=== PATIENT | male | born 1970 | race Caucasian/White ===

== ENCOUNTER 2017-09-28 21:20 | Inpatient (IN) | payer OTHER ==
[2017-09-28] MEDS ORDERED: PENDING SANTYL ORDER FOR WOUND CARE XX (23:30)
[2017-09-28] MEDS: KETOROLAC 30 MG INJ IV (23:50)
[2017-09-28] MEDS: LORAZEPAM 2 MG INJ IV (23:50)
[2017-09-29 00:52] LABS: ADD MAN DIFF? NO
[2017-09-29 00:53] LABS: BASOPHIL # 0.1 10^3/ul (0.0-0.1); BASOPHILS % 0.5 % (0.0-2.0); EOSINOPHILS # 0.7 10^3/ul (0.0-0.5); EOSINOPHILS % 5.9 % (0.0-7.0); HEMATOCRIT 32.6 % (42.0-52.0); LYMPHOCYTES # 2.2 10^3/ul (0.8-2.9); LYMPHOCYTES % 18.1 % (15.0-51.0); MEAN CORPUSCULAR HEMOGLOBIN 31.3 pg (29.0-33.0); MEAN CORPUSCULAR HGB CONC 30.7 g/dl (32.0-37.0); MEAN CORPUSCULAR VOLUME 101.9 fl (82.0-101.0); MEAN PLATELET VOLUME 9.8 fl (7.4-10.4); MONOCYTE # 1.1 10^3/ul (0.3-0.9); MONOCYTES % 9.3 % (0.0-11.0); NEUTROPHILS % 65.9 % (39.0-77.0); PLATELET COUNT 273 10^3/UL (140-415); POSITIVE DIFF @See below; RED CELL DISTRIBUTION WIDTH 14.1 % (11.5-14.5)
[2017-09-29 00:53] LABS: WHITE BLOOD COUNT 12.1 10^3/ul (4.8-10.8)
[2017-09-29] MEDS: DEXTROSE 5%-0.45% NACL 1,000 ML IV ×4 (01:00→18:00)
[2017-09-29] MEDS: morphine 2 MG INJ IV ×3 (01:00→09:12)
[2017-09-29] MEDS: ONDANSETRON 4 MG INJ IV ×3 (01:08→17:38)
[2017-09-29 01:11] LABS: LACTIC ACID 0.6 mmol/L (0.5-2.0)
[2017-09-29 01:15] LABS: ALANINE AMINOTRANSFERASE 22 IU/L (13-69); ALBUMIN 3.3 g/dl (3.3-4.9); ALBUMIN/GLOBULIN RATIO 1.22; ALKALINE PHOSPHATASE 76 IU/L (42-121); ANION GAP 16 (8-16); ASPARTATE AMINO TRANSFERASE 19 IU/L (15-46); BILIRUBIN,INDIRECT 0.3 mg/dl (0-1.1); BILIRUBIN,TOTAL 0.3 mg/dl (0.2-1.3); BLOOD UREA NITROGEN 22 mg/dl (7-20); CALCIUM 8.4 mg/dl (8.4-10.2); CARBON DIOXIDE 19 mmol/L (21-31); CHLORIDE 112 mmol/L (97-110); CREATININE 1.08 mg/dl (0.61-1.24); GLUCOSE 62 mg/dl (70-220); MAGNESIUM 2.1 mg/dl (1.7-2.5); PHOSPHORUS 2.4 mg/dl (2.5-4.9); POTASSIUM 4.9 mmol/L (3.5-5.1); SODIUM 142 mmol/L (135-144)
[2017-09-29 05:50] LABS: ADD MAN DIFF? NO
[2017-09-29 05:57] LABS: BASOPHIL # 0.1 10^3/ul (0.0-0.1); BASOPHILS % 0.5 % (0.0-2.0); EOSINOPHILS # 0.6 10^3/ul (0.0-0.5); EOSINOPHILS % 6.8 % (0.0-7.0); HEMATOCRIT 30.9 % (42.0-52.0); HEMOGLOBIN 9.8 g/dl (14.0-18.0); LYMPHOCYTES # 1.8 10^3/ul (0.8-2.9); MEAN CORPUSCULAR HEMOGLOBIN 31.9 pg (29.0-33.0); MEAN CORPUSCULAR HGB CONC 31.7 g/dl (32.0-37.0); MEAN CORPUSCULAR VOLUME 100.7 fl (82.0-101.0); MEAN PLATELET VOLUME 9.9 fl (7.4-10.4); MONOCYTE # 0.9 10^3/ul (0.3-0.9); MONOCYTES % 9.2 % (0.0-11.0); NEUTROPHILS % 64.2 % (39.0-77.0); PLATELET COUNT 252 10^3/UL (140-415); POSITIVE DIFF @See below; RED BLOOD COUNT 3.07 10^6/ul (4.70-6.10); RED CELL DISTRIBUTION WIDTH 14.1 % (11.5-14.5)
[2017-09-29 05:57] LABS: WHITE BLOOD COUNT 9.4 10^3/ul (4.8-10.8)
[2017-09-29 06:21] LABS: ALANINE AMINOTRANSFERASE 20 IU/L (13-69); ALBUMIN 3.1 g/dl (3.3-4.9); ALBUMIN/GLOBULIN RATIO 1.19; ALKALINE PHOSPHATASE 70 IU/L (42-121); ANION GAP 9 (8-16); ASPARTATE AMINO TRANSFERASE 24 IU/L (15-46); BILIRUBIN,INDIRECT 0.2 mg/dl (0-1.1); BILIRUBIN,TOTAL 0.2 mg/dl (0.2-1.3); BLOOD UREA NITROGEN 18 mg/dl (7-20); CALCIUM 8.1 mg/dl (8.4-10.2); CARBON DIOXIDE 23 mmol/L (21-31); CHLORIDE 112 mmol/L (97-110); CREATININE 1.03 mg/dl (0.61-1.24); GLUCOSE 101 mg/dl (70-220); PHOSPHORUS 2.2 mg/dl (2.5-4.9); SODIUM 140 mmol/L (135-144); TOTAL PROTEIN 5.7 g/dl (6.1-8.1)
[2017-09-29] MEDS: NICOTINE (21 MG/24 HR) PATCH TRANSDERM (09:11)
[2017-09-29] MEDS: CIPROFLOXACIN 400MG/D5W 200 ML IVPB ×2 (09:12→21:08)
[2017-09-29] MEDS: PREGABALIN 75 MG CAP PO ×2 (10:40→21:08)
[2017-09-29] MEDS: MULTIVITAMINS THERAPEUTIC TAB PO (10:40)
[2017-09-29] MEDS: LEVOTHYROXINE 50 MCG TAB PO (10:40)
[2017-09-29] MEDS: BUSPIRONE 10 MG TAB PO ×2 (12:37→21:08)
[2017-09-29 13:21] LABS: AMPHETAMINE/METHAMPHETAMINE Negative (NEGATIVE); BARBITURATES Negative (NEGATIVE); BENZODIAZEPINES Negative (NEGATIVE); CANNABINOIDS Positive (NEGATIVE); COCAINE Negative (NEGATIVE)
[2017-09-29 13:24] LABS: OPIATES Positive (NEGATIVE)
[2017-09-29] MEDS: HYDROmorphONE 0.5 MG/0.5 ML SYG IV ×3 (13:24→21:45)
[2017-09-29 15:52] LABS: FREE T4 (FREE THYROXINE) 1.33 ng/dl (0.64-1.79)
[2017-09-29] MEDS: traZODone 100 MG TAB PO (21:08)
[2017-09-29] MEDS: BACLOFEN 10 MG TAB PO (21:08)
[2017-09-30] MEDS: HYDROmorphONE 0.5 MG/0.5 ML SYG IV ×6 (02:08→22:32)
[2017-09-30] MEDS: ZOLPIDEM 5 MG TAB PO (02:54)
[2017-09-30 05:31] LABS: ADD MAN DIFF? NO
[2017-09-30 05:36] LABS: BASOPHIL # 0.1 10^3/ul (0.0-0.1); BASOPHILS % 0.6 % (0.0-2.0); EOSINOPHILS # 0.5 10^3/ul (0.0-0.5); EOSINOPHILS % 6.1 % (0.0-7.0); HEMATOCRIT 33.2 % (42.0-52.0); HEMOGLOBIN 10.8 g/dl (14.0-18.0); LYMPHOCYTES # 2.2 10^3/ul (0.8-2.9); LYMPHOCYTES % 26.7 % (15.0-51.0); MEAN CORPUSCULAR HGB CONC 32.5 g/dl (32.0-37.0); MEAN CORPUSCULAR VOLUME 98.2 fl (82.0-101.0); MEAN PLATELET VOLUME 9.9 fl (7.4-10.4); MONOCYTE # 0.9 10^3/ul (0.3-0.9); MONOCYTES % 10.7 % (0.0-11.0); NEUTROPHIL # 4.4 10^3/ul (1.6-7.5); PLATELET COUNT 321 10^3/UL (140-415); RED BLOOD COUNT 3.38 10^6/ul (4.70-6.10); RED CELL DISTRIBUTION WIDTH 13.6 % (11.5-14.5)
[2017-09-30 05:55] LABS: ALANINE AMINOTRANSFERASE 20 IU/L (13-69); ALBUMIN 3.3 g/dl (3.3-4.9); ALBUMIN/GLOBULIN RATIO 1.17; ALKALINE PHOSPHATASE 71 IU/L (42-121); ANION GAP 11 (8-16); ASPARTATE AMINO TRANSFERASE 18 IU/L (15-46); BILIRUBIN,INDIRECT 0.3 mg/dl (0-1.1); BILIRUBIN,TOTAL 0.3 mg/dl (0.2-1.3); BLOOD UREA NITROGEN 5 mg/dl (7-20); CALCIUM 8.6 mg/dl (8.4-10.2); CARBON DIOXIDE 27 mmol/L (21-31); CHLORIDE 109 mmol/L (97-110); CREATININE 0.85 mg/dl (0.61-1.24); GLUCOSE 120 mg/dl (70-220); POTASSIUM 3.5 mmol/L (3.5-5.1); SODIUM 143 mmol/L (135-144); TOTAL PROTEIN 6.1 g/dl (6.1-8.1)
[2017-09-30 06:22] LABS: PHOSPHORUS 2.4 mg/dl (2.5-4.9)
[2017-09-30 06:22] LABS: MAGNESIUM 1.8 mg/dl (1.7-2.5)
[2017-09-30] MEDS: LEVOTHYROXINE 50 MCG TAB PO (06:25)
[2017-09-30] MEDS: DEXTROSE 5%-0.45% NACL 1,000 ML IV ×3 (06:26→17:40)
[2017-09-30] MEDS: CIPROFLOXACIN 400MG/D5W 200 ML IVPB ×2 (09:09→21:58)
[2017-09-30] MEDS: NICOTINE (21 MG/24 HR) PATCH TRANSDERM (09:10)
[2017-09-30] MEDS: MULTIVITAMINS THERAPEUTIC TAB PO (09:10)
[2017-09-30] MEDS: BUSPIRONE 10 MG TAB PO ×3 (09:10→22:00)
[2017-09-30] MEDS: PREGABALIN 75 MG CAP PO ×2 (09:10→22:00)
[2017-09-30] MEDS: ONDANSETRON 4 MG INJ IV ×3 (09:32→22:03)
[2017-09-30] MEDS: BACLOFEN 10 MG TAB PO ×2 (15:22→22:00)
[2017-09-30] MEDS: LIDOCAINE 5% PATCH TD (17:40)
[2017-09-30] MEDS: traZODone 100 MG TAB PO (21:58)
[2017-10-01] MEDS: DEXTROSE 5%-0.45% NACL 1,000 ML IV ×3 (03:44→23:30)
[2017-10-01] MEDS: SOD CHLORIDE 0.9% 500 ML IV (04:03)
[2017-10-01 04:59] LABS: ADD MAN DIFF? NO
[2017-10-01 05:01] LABS: WHITE BLOOD COUNT 7.2 10^3/ul (4.8-10.8)
[2017-10-01 05:01] LABS: BASOPHIL # 0.1 10^3/ul (0.0-0.1); BASOPHILS % 0.8 % (0.0-2.0); EOSINOPHILS # 0.5 10^3/ul (0.0-0.5); EOSINOPHILS % 7.1 % (0.0-7.0); HEMATOCRIT 31.7 % (42.0-52.0); HEMOGLOBIN 10.8 g/dl (14.0-18.0); LYMPHOCYTES # 2.9 10^3/ul (0.8-2.9); LYMPHOCYTES % 40.7 % (15.0-51.0); MEAN CORPUSCULAR HEMOGLOBIN 32.4 pg (29.0-33.0); MEAN CORPUSCULAR HGB CONC 34.1 g/dl (32.0-37.0); MEAN CORPUSCULAR VOLUME 95.2 fl (82.0-101.0); MEAN PLATELET VOLUME 9.8 fl (7.4-10.4); MONOCYTE # 0.9 10^3/ul (0.3-0.9); MONOCYTES % 12.4 % (0.0-11.0); NEUTROPHIL # 2.7 10^3/ul (1.6-7.5); NEUTROPHILS % 36.8 % (39.0-77.0); PLATELET COUNT 329 10^3/UL (140-415); RED BLOOD COUNT 3.33 10^6/ul (4.70-6.10); RED CELL DISTRIBUTION WIDTH 13.3 % (11.5-14.5)
[2017-10-01 05:30] LABS: PHOSPHORUS 2.9 mg/dl (2.5-4.9)
[2017-10-01 05:30] LABS: MAGNESIUM 1.6 mg/dl (1.7-2.5)
[2017-10-01 05:31] LABS: ANION GAP 8 (8-16); BLOOD UREA NITROGEN 3 mg/dl (7-20); CALCIUM 8.9 mg/dl (8.4-10.2); CARBON DIOXIDE 29 mmol/L (21-31); CHLORIDE 108 mmol/L (97-110); CREATININE 0.82 mg/dl (0.61-1.24); GLUCOSE 101 mg/dl (70-220); POTASSIUM 3.2 mmol/L (3.5-5.1); SODIUM 142 mmol/L (135-144)
[2017-10-01] MEDS: BUSPIRONE 10 MG TAB PO ×3 (09:12→21:10)
[2017-10-01] MEDS: LEVOTHYROXINE 50 MCG TAB PO (09:13)
[2017-10-01] MEDS: PREGABALIN 75 MG CAP PO ×2 (09:13→21:11)
[2017-10-01] MEDS: MULTIVITAMINS THERAPEUTIC TAB PO (09:13)
[2017-10-01] MEDS: NICOTINE (21 MG/24 HR) PATCH TRANSDERM (09:13)
[2017-10-01] MEDS: LIDOCAINE 5% PATCH TD (09:14)
[2017-10-01] MEDS: CIPROFLOXACIN 400MG/D5W 200 ML IVPB ×2 (09:14→21:11)
[2017-10-01] MEDS: ONDANSETRON 4 MG INJ IV ×2 (09:49→18:38)
[2017-10-01] MEDS: HYDROmorphONE 0.5 MG/0.5 ML SYG IV ×4 (09:49→23:10)
[2017-10-01] MEDS: POTASSIUM CHLORIDE (SR) 20 MEQ TAB PO (15:25)
[2017-10-01] MEDS: MAGNESIUM SULFATE 2 GM/50 ML 50 ML IVPB (17:40)
[2017-10-01] MEDS: traZODone 100 MG TAB PO ×2 (21:00→21:11)
[2017-10-01] MEDS: BACLOFEN 10 MG TAB PO (21:10)
[2017-10-02] MEDS: traZODone 100 MG TAB PO ×2 (00:13→20:18)
[2017-10-02 05:06] LABS: ADD MAN DIFF? NO
[2017-10-02 05:13] LABS: BASOPHIL # 0.1 10^3/ul (0.0-0.1); BASOPHILS % 0.9 % (0.0-2.0); EOSINOPHILS # 0.6 10^3/ul (0.0-0.5); EOSINOPHILS % 7.7 % (0.0-7.0); HEMATOCRIT 30.6 % (42.0-52.0); HEMOGLOBIN 10.1 g/dl (14.0-18.0); LYMPHOCYTES # 3.9 10^3/ul (0.8-2.9); LYMPHOCYTES % 49.8 % (15.0-51.0); MEAN CORPUSCULAR HEMOGLOBIN 31.8 pg (29.0-33.0); MEAN CORPUSCULAR VOLUME 96.2 fl (82.0-101.0); MEAN PLATELET VOLUME 9.6 fl (7.4-10.4); MONOCYTE # 0.9 10^3/ul (0.3-0.9); MONOCYTES % 11.5 % (0.0-11.0); NEUTROPHILS % 25.7 % (39.0-77.0); PLATELET COUNT 312 10^3/UL (140-415); RED BLOOD COUNT 3.18 10^6/ul (4.70-6.10); RED CELL DISTRIBUTION WIDTH 13.2 % (11.5-14.5)
[2017-10-02 05:13] LABS: WHITE BLOOD COUNT 7.8 10^3/ul (4.8-10.8)
[2017-10-02] MEDS: DEXTROSE 5%-0.45% NACL 1,000 ML IV ×3 (05:18→23:30)
[2017-10-02 05:36] LABS: ANION GAP 10 (8-16); BLOOD UREA NITROGEN 3 mg/dl (7-20); CALCIUM 8.5 mg/dl (8.4-10.2); CARBON DIOXIDE 27 mmol/L (21-31); CHLORIDE 109 mmol/L (97-110); CREATININE 0.88 mg/dl (0.61-1.24); GLUCOSE 102 mg/dl (70-220); POTASSIUM 3.5 mmol/L (3.5-5.1); SODIUM 142 mmol/L (135-144)
[2017-10-02] MEDS: LEVOTHYROXINE 50 MCG TAB PO (06:14)
[2017-10-02] MEDS: MULTIVITAMINS THERAPEUTIC TAB PO (08:42)
[2017-10-02] MEDS: NICOTINE (21 MG/24 HR) PATCH TRANSDERM (08:42)
[2017-10-02] MEDS: PREGABALIN 75 MG CAP PO ×2 (08:42→20:18)
[2017-10-02] MEDS: BUSPIRONE 10 MG TAB PO ×3 (08:42→20:18)
[2017-10-02] MEDS: CIPROFLOXACIN 400MG/D5W 200 ML IVPB ×2 (08:42→20:36)
[2017-10-02] MEDS: LIDOCAINE 5% PATCH TD (08:43)
[2017-10-02] MEDS: DIATR MEGLU/DIATRIZOATE SODIUM 120 ML BTL (12:54)
[2017-10-02] MEDS: ONDANSETRON 4 MG INJ IV ×2 (13:12→20:17)
[2017-10-02] MEDS: HYDROmorphONE 0.5 MG/0.5 ML SYG IV ×3 (13:13→22:43)
[2017-10-02] MEDS: ACETAMINOPHEN 500 MG TAB PO ×2 (15:17→22:43)
[2017-10-02] MEDS: IOHEXOL 14.3 MG(I)/ML (ADULT) BTL PO (18:12)
[2017-10-02] MEDS: IODIXANOL LOCM 100 ML BTL (18:58)
[2017-10-02] MEDS: SOD CHLORIDE 0.9% 100 ML (18:58)
[2017-10-02] MEDS: BACLOFEN 10 MG TAB PO (20:18)
[2017-10-03] MEDS: ONDANSETRON 4 MG INJ IV ×4 (02:57→21:16)
[2017-10-03] MEDS: HYDROmorphONE 0.5 MG/0.5 ML SYG IV ×6 (02:57→23:10)
[2017-10-03] MEDS: DEXTROSE 5%-0.45% NACL 1,000 ML IV ×3 (02:57→23:30)
[2017-10-03 06:00] LABS: ADD MAN DIFF? NO
[2017-10-03 06:02] LABS: ABNORMAL IP MESSAGE 1; BASOPHIL # 0.1 10^3/ul (0.0-0.1); BASOPHILS % 1.2 % (0.0-2.0); EOSINOPHILS # 0.7 10^3/ul (0.0-0.5); EOSINOPHILS % 8.3 % (0.0-7.0); HEMATOCRIT 30.4 % (42.0-52.0); HEMOGLOBIN 10.2 g/dl (14.0-18.0); LYMPHOCYTES # 3.8 10^3/ul (0.8-2.9); LYMPHOCYTES % 48.8 % (15.0-51.0); MEAN CORPUSCULAR HEMOGLOBIN 32.7 pg (29.0-33.0); MEAN CORPUSCULAR HGB CONC 33.6 g/dl (32.0-37.0); MEAN CORPUSCULAR VOLUME 97.4 fl (82.0-101.0); MEAN PLATELET VOLUME 9.7 fl (7.4-10.4); MONOCYTE # 0.9 10^3/ul (0.3-0.9); MONOCYTES % 11.1 % (0.0-11.0); NEUTROPHILS % 25.4 % (39.0-77.0); PLATELET COUNT 324 10^3/UL (140-415); POSITIVE DIFF @See below; RED BLOOD COUNT 3.12 10^6/ul (4.70-6.10); RED CELL DISTRIBUTION WIDTH 13.2 % (11.5-14.5)
[2017-10-03 06:02] LABS: WHITE BLOOD COUNT 7.8 10^3/ul (4.8-10.8)
[2017-10-03 06:29] LABS: ALANINE AMINOTRANSFERASE 19 IU/L (13-69); ALKALINE PHOSPHATASE 47 IU/L (42-121); ANION GAP 8 (8-16); ASPARTATE AMINO TRANSFERASE 14 IU/L (15-46); BILIRUBIN,INDIRECT 0.2 mg/dl (0-1.1); BILIRUBIN,TOTAL 0.2 mg/dl (0.2-1.3); BLOOD UREA NITROGEN 4 mg/dl (7-20); CALCIUM 8.5 mg/dl (8.4-10.2); CARBON DIOXIDE 28 mmol/L (21-31); CHLORIDE 107 mmol/L (97-110); CREATININE 0.94 mg/dl (0.61-1.24); GLUCOSE 106 mg/dl (70-220); POTASSIUM 3.2 mmol/L (3.5-5.1); SODIUM 140 mmol/L (135-144); TOTAL PROTEIN 5.5 g/dl (6.1-8.1)
[2017-10-03 06:31] LABS: PHOSPHORUS 3.6 mg/dl (2.5-4.9)
[2017-10-03 06:31] LABS: MAGNESIUM 1.7 mg/dl (1.7-2.5)
[2017-10-03] MEDS: LEVOTHYROXINE 50 MCG TAB PO (06:55)
[2017-10-03] MEDS: CIPROFLOXACIN 400MG/D5W 200 ML IVPB ×2 (08:37→21:02)
[2017-10-03] MEDS: PREGABALIN 75 MG CAP PO ×2 (08:38→21:03)
[2017-10-03] MEDS: BUSPIRONE 10 MG TAB PO ×3 (08:38→21:02)
[2017-10-03] MEDS: MULTIVITAMINS THERAPEUTIC TAB PO (08:38)
[2017-10-03] MEDS: NICOTINE (21 MG/24 HR) PATCH TRANSDERM (08:38)
[2017-10-03] MEDS: LIDOCAINE 5% PATCH TD (08:39)
[2017-10-03] MEDS: BARIUM SULF 2% 450 ML BTL (BERRY SMOOTHIE) PO (10:00)
[2017-10-03] MEDS ORDERED: BARIUM SULF 2% 450 ML BTL (BERRY SMOOTHIE) PO (11:30)
[2017-10-03] MEDS: POTASSIUM CHLORIDE 100 ML IVPB (11:54)
[2017-10-03] MEDS: BISACODYL (EC) 5 MG TAB PO (15:04)
[2017-10-03] MEDS: POLYETHYLENE GLYCOL 3350 119 GM POWDER PO (17:35)
[2017-10-03] MEDS: MAGNESIUM CITRATE 300 ML BTL PO (18:52)
[2017-10-03] MEDS: ACETAMINOPHEN 500 MG TAB PO (18:57)
[2017-10-03] MEDS: traZODone 100 MG TAB PO (21:03)
[2017-10-03] MEDS: BACLOFEN 10 MG TAB PO (21:03)
[2017-10-04] MEDS: DEXTROSE 5%-0.45% NACL 1,000 ML IV ×3 (01:28→22:44)
[2017-10-04] MEDS: HYDROmorphONE 0.5 MG/0.5 ML SYG IV ×5 (03:39→22:27)
[2017-10-04] MEDS: ONDANSETRON 4 MG INJ IV ×3 (03:39→17:52)
[2017-10-04] MEDS: POLYETHYLENE GLYCOL 3350 119 GM POWDER PO (05:14)
[2017-10-04] MEDS: BISACODYL (EC) 5 MG TAB PO (05:14)
[2017-10-04] MEDS: LEVOTHYROXINE 50 MCG TAB PO (06:06)
[2017-10-04] MEDS: PREGABALIN 75 MG CAP PO ×2 (09:32→20:40)
[2017-10-04] MEDS: LIDOCAINE 5% PATCH TD (09:32)
[2017-10-04] MEDS: CIPROFLOXACIN 400MG/D5W 200 ML IVPB ×2 (09:32→20:41)
[2017-10-04] MEDS: MULTIVITAMINS THERAPEUTIC TAB PO (09:33)
[2017-10-04] MEDS: NICOTINE (21 MG/24 HR) PATCH TRANSDERM (09:33)
[2017-10-04] MEDS: BUSPIRONE 10 MG TAB PO ×3 (09:33→20:41)
[2017-10-04 09:52] LABS: ADD MAN DIFF? NO
[2017-10-04 10:06] LABS: ABNORMAL IP MESSAGE 1; BASOPHIL # 0.1 10^3/ul (0.0-0.1); BASOPHILS % 1.1 % (0.0-2.0); HEMATOCRIT 33.8 % (42.0-52.0); HEMOGLOBIN 11.2 g/dl (14.0-18.0); LYMPHOCYTES # 1.5 10^3/ul (0.8-2.9); MEAN CORPUSCULAR HGB CONC 33.1 g/dl (32.0-37.0); MEAN CORPUSCULAR VOLUME 96.6 fl (82.0-101.0); MEAN PLATELET VOLUME 9.5 fl (7.4-10.4); MONOCYTE # 0.7 10^3/ul (0.3-0.9); MONOCYTES % 10.4 % (0.0-11.0); NEUTROPHIL # 3.1 10^3/ul (1.6-7.5); NEUTROPHILS % 44.6 % (39.0-77.0); NUCLEATED RED BLOOD CELLS% 0.3 /100WBC (0.0-0.0); PLATELET COUNT 369 10^3/UL (140-415); POSITIVE DIFF @See below; RED CELL DISTRIBUTION WIDTH 13.2 % (11.5-14.5)
[2017-10-04 10:10] LABS: ALANINE AMINOTRANSFERASE 21 IU/L (13-69); ALBUMIN 3.4 g/dl (3.3-4.9); ALBUMIN/GLOBULIN RATIO 1.36; ALKALINE PHOSPHATASE 55 IU/L (42-121); ANION GAP 9 (8-16); ASPARTATE AMINO TRANSFERASE 14 IU/L (15-46); BILIRUBIN,INDIRECT 0.3 mg/dl (0-1.1); BILIRUBIN,TOTAL 0.3 mg/dl (0.2-1.3); BLOOD UREA NITROGEN 3 mg/dl (7-20); CALCIUM 8.7 mg/dl (8.4-10.2); CARBON DIOXIDE 27 mmol/L (21-31); CHLORIDE 108 mmol/L (97-110); CREATININE 0.91 mg/dl (0.61-1.24); GLUCOSE 106 mg/dl (70-220); POTASSIUM 3.2 mmol/L (3.5-5.1); SODIUM 141 mmol/L (135-144); TOTAL PROTEIN 5.9 g/dl (6.1-8.1)
[2017-10-04] MEDS ORDERED: POTASSIUM CHLORIDE 50 ML IVPB (12:30)
[2017-10-04] MEDS: POTASSIUM CHLORIDE 100 ML IVPB (15:03)
[2017-10-04] MEDS: PROPOFOL 40 ML (15:54)
[2017-10-04] MEDS: LIDOCAINE 100 MG SYRINGE (15:55)
[2017-10-04] MEDS: BACLOFEN 10 MG TAB PO (20:41)
[2017-10-04] MEDS: traZODone 100 MG TAB PO (20:41)
[2017-10-05] MEDS: ONDANSETRON 4 MG INJ IV ×4 (00:18→20:14)
[2017-10-05] MEDS: HYDROmorphONE 0.5 MG/0.5 ML SYG IV ×5 (05:13→21:27)
[2017-10-05 05:43] LABS: ADD MAN DIFF? NO
[2017-10-05 06:02] LABS: WHITE BLOOD COUNT 6.5 10^3/ul (4.8-10.8)
[2017-10-05 06:02] LABS: ABNORMAL IP MESSAGE 1; BASOPHIL # 0.1 10^3/ul (0.0-0.1); BASOPHILS % 1.2 % (0.0-2.0); EOSINOPHILS % 15.6 % (0.0-7.0); HEMATOCRIT 33.3 % (42.0-52.0); LYMPHOCYTES # 2.2 10^3/ul (0.8-2.9); LYMPHOCYTES % 33.9 % (15.0-51.0); MEAN CORPUSCULAR HEMOGLOBIN 31.6 pg (29.0-33.0); MEAN CORPUSCULAR VOLUME 95.7 fl (82.0-101.0); MEAN PLATELET VOLUME 9.7 fl (7.4-10.4); MONOCYTE # 0.7 10^3/ul (0.3-0.9); MONOCYTES % 10.7 % (0.0-11.0); NEUTROPHIL # 2.1 10^3/ul (1.6-7.5); NEUTROPHILS % 31.6 % (39.0-77.0); PLATELET COUNT 361 10^3/UL (140-415); POSITIVE DIFF @See below; RED BLOOD COUNT 3.48 10^6/ul (4.70-6.10); RED CELL DISTRIBUTION WIDTH 13.4 % (11.5-14.5)
[2017-10-05 06:19] LABS: ALANINE AMINOTRANSFERASE 8 IU/L (13-69); ALBUMIN/GLOBULIN RATIO 1.11; ALKALINE PHOSPHATASE 44 IU/L (42-121); ANION GAP 9 (8-16); ASPARTATE AMINO TRANSFERASE 15 IU/L (15-46); BILIRUBIN,INDIRECT 0.1 mg/dl (0-1.1); BILIRUBIN,TOTAL 0.1 mg/dl (0.2-1.3); BLOOD UREA NITROGEN 3 mg/dl (7-20); CALCIUM 8.6 mg/dl (8.4-10.2); CARBON DIOXIDE 27 mmol/L (21-31); CHLORIDE 108 mmol/L (97-110); CREATININE 1.03 mg/dl (0.61-1.24); GLUCOSE 106 mg/dl (70-220); POTASSIUM 3.3 mmol/L (3.5-5.1); SODIUM 141 mmol/L (135-144); TOTAL PROTEIN 5.7 g/dl (6.1-8.1)
[2017-10-05] MEDS: LEVOTHYROXINE 50 MCG TAB PO (06:21)
[2017-10-05] MEDS: DEXTROSE 5%-0.45% NACL 1,000 ML IV ×3 (07:52→23:30)
[2017-10-05] MEDS: CIPROFLOXACIN 400MG/D5W 200 ML IVPB ×2 (09:01→20:15)
[2017-10-05] MEDS: LIDOCAINE 5% PATCH TD (09:01)
[2017-10-05] MEDS: MULTIVITAMINS THERAPEUTIC TAB PO (09:02)
[2017-10-05] MEDS: NICOTINE (21 MG/24 HR) PATCH TRANSDERM (09:02)
[2017-10-05] MEDS: BUSPIRONE 10 MG TAB PO ×3 (09:02→20:15)
[2017-10-05] MEDS: PREGABALIN 75 MG CAP PO ×2 (09:02→20:14)
[2017-10-05] MEDS: POTASSIUM CHLORIDE 100 ML IVPB (11:13)
[2017-10-05] MEDS: MESALAMINE (SR) 250 MG CAP PO ×2 (17:20→20:15)
[2017-10-05] MEDS: IOHEXOL 14.3 MG(I)/ML (ADULT) BTL PO (18:29)
[2017-10-05] MEDS: traZODone 100 MG TAB PO (20:15)
[2017-10-05] MEDS: BACLOFEN 10 MG TAB PO (20:15)
[2017-10-05] MEDS: ACETAMINOPHEN 500 MG TAB PO (21:45)
[2017-10-05] MEDS: SOD CHLORIDE 0.9% 100 ML (22:11)
[2017-10-05] MEDS: IOHEXOL 300MG/ML 150 ML BTL (22:13)
[2017-10-06] MEDS: DEXTROSE 5%-0.45% NACL 1,000 ML IV ×2 (06:37→15:30)
[2017-10-06] MEDS: HYDROmorphONE 0.5 MG/0.5 ML SYG IV ×4 (06:37→21:09)
[2017-10-06] MEDS: LEVOTHYROXINE 50 MCG TAB PO (06:37)
[2017-10-06] MEDS: ONDANSETRON 4 MG INJ IV ×3 (06:42→20:55)
[2017-10-06] MEDS: CIPROFLOXACIN 400MG/D5W 200 ML IVPB ×2 (08:48→20:54)
[2017-10-06] MEDS: MULTIVITAMINS THERAPEUTIC TAB PO (08:50)
[2017-10-06] MEDS: MESALAMINE (SR) 250 MG CAP PO ×4 (08:50→20:55)
[2017-10-06] MEDS: PREGABALIN 75 MG CAP PO ×2 (08:50→20:55)
[2017-10-06] MEDS: BUSPIRONE 10 MG TAB PO ×3 (08:50→20:55)
[2017-10-06] MEDS: LIDOCAINE 5% PATCH TD (09:00)
[2017-10-06] MEDS: NICOTINE (21 MG/24 HR) PATCH TRANSDERM (09:00)
[2017-10-06] MEDS ORDERED: TPN 1,000 ML IV (09:10)
[2017-10-06 09:20] LABS: ADD MAN DIFF? NO
[2017-10-06 09:33] LABS: WHITE BLOOD COUNT 5.5 10^3/ul (4.8-10.8)
[2017-10-06 09:33] LABS: ABNORMAL IP MESSAGE 1; BASOPHIL # 0.1 10^3/ul (0.0-0.1); BASOPHILS % 1.3 % (0.0-2.0); EOSINOPHILS # 0.8 10^3/ul (0.0-0.5); EOSINOPHILS % 14.8 % (0.0-7.0); HEMATOCRIT 34.8 % (42.0-52.0); HEMOGLOBIN 11.2 g/dl (14.0-18.0); LYMPHOCYTES # 1.6 10^3/ul (0.8-2.9); LYMPHOCYTES % 28.8 % (15.0-51.0); MEAN CORPUSCULAR HEMOGLOBIN 31.2 pg (29.0-33.0); MEAN CORPUSCULAR HGB CONC 32.2 g/dl (32.0-37.0); MEAN CORPUSCULAR VOLUME 96.9 fl (82.0-101.0); MEAN PLATELET VOLUME 9.7 fl (7.4-10.4); MONOCYTE # 0.5 10^3/ul (0.3-0.9); MONOCYTES % 8.9 % (0.0-11.0); NEUTROPHIL # 2.3 10^3/ul (1.6-7.5); NEUTROPHILS % 41.1 % (39.0-77.0); PLATELET COUNT 373 10^3/UL (140-415); POSITIVE DIFF @See below; RED BLOOD COUNT 3.59 10^6/ul (4.70-6.10); RED CELL DISTRIBUTION WIDTH 13.5 % (11.5-14.5)
[2017-10-06 10:15] LABS: ANION GAP 10 (8-16); BLOOD UREA NITROGEN 5 mg/dl (7-20); CALCIUM 8.6 mg/dl (8.4-10.2); CARBON DIOXIDE 27 mmol/L (21-31); CHLORIDE 108 mmol/L (97-110); CREATININE 1.02 mg/dl (0.61-1.24); GLUCOSE 98 mg/dl (70-220); POTASSIUM 3.6 mmol/L (3.5-5.1); SODIUM 141 mmol/L (135-144)
[2017-10-06 10:28] LABS: ALANINE AMINOTRANSFERASE 25 IU/L (13-69); ALBUMIN 3.1 g/dl (3.3-4.9); ALKALINE PHOSPHATASE 48 IU/L (42-121); ASPARTATE AMINO TRANSFERASE 20 IU/L (15-46); BILIRUBIN,INDIRECT 0.2 mg/dl (0-1.1); BILIRUBIN,TOTAL 0.2 mg/dl (0.2-1.3); MAGNESIUM 1.8 mg/dl (1.7-2.5); PHOSPHORUS 3.5 mg/dl (2.5-4.9); TOTAL PROTEIN 5.9 g/dl (6.1-8.1); TRIGLYCERIDES 132 mg/dl (0-149)
[2017-10-06 10:35] LABS: PREALBUMIN 20.2 mg/dl (17.6-36.0)
[2017-10-06] MEDS ORDERED: ACCU-CHEK XX (13:00)
[2017-10-06] MEDS: BUDESONIDE (EC) 3 MG CAP PO (14:00)
[2017-10-06] MEDS: traZODone 100 MG TAB PO (20:55)
[2017-10-06] MEDS: BACLOFEN 10 MG TAB PO (20:55)
[2017-10-07] MEDS: DEXTROSE 5%-0.45% NACL 1,000 ML IV ×4 (01:10→23:30)
[2017-10-07] MEDS: HYDROmorphONE 0.5 MG/0.5 ML SYG IV ×6 (01:10→22:30)
[2017-10-07] MEDS: ONDANSETRON 4 MG INJ IV ×3 (05:25→18:19)
[2017-10-07 05:46] LABS: ADD MAN DIFF? NO
[2017-10-07 05:50] LABS: BASOPHIL # 0.1 10^3/ul (0.0-0.1); BASOPHILS % 1.1 % (0.0-2.0); EOSINOPHILS # 0.9 10^3/ul (0.0-0.5); EOSINOPHILS % 12.6 % (0.0-7.0); HEMATOCRIT 34.4 % (42.0-52.0); HEMOGLOBIN 11.4 g/dl (14.0-18.0); LYMPHOCYTES # 2.7 10^3/ul (0.8-2.9); LYMPHOCYTES % 38.4 % (15.0-51.0); MEAN CORPUSCULAR HEMOGLOBIN 32.2 pg (29.0-33.0); MEAN CORPUSCULAR HGB CONC 33.1 g/dl (32.0-37.0); MEAN CORPUSCULAR VOLUME 97.2 fl (82.0-101.0); MEAN PLATELET VOLUME 9.7 fl (7.4-10.4); MONOCYTE # 0.7 10^3/ul (0.3-0.9); MONOCYTES % 9.3 % (0.0-11.0); NEUTROPHIL # 2.5 10^3/ul (1.6-7.5); NEUTROPHILS % 35.4 % (39.0-77.0); PLATELET COUNT 353 10^3/UL (140-415); RED BLOOD COUNT 3.54 10^6/ul (4.70-6.10); RED CELL DISTRIBUTION WIDTH 13.4 % (11.5-14.5)
[2017-10-07 05:50] LABS: WHITE BLOOD COUNT 7.1 10^3/ul (4.8-10.8)
[2017-10-07] MEDS: LEVOTHYROXINE 50 MCG TAB PO (06:06)
[2017-10-07 06:15] LABS: ANION GAP 11 (8-16); BLOOD UREA NITROGEN 7 mg/dl (7-20); CALCIUM 8.8 mg/dl (8.4-10.2); CARBON DIOXIDE 25 mmol/L (21-31); CHLORIDE 110 mmol/L (97-110); CREATININE 1.01 mg/dl (0.61-1.24); GLUCOSE 113 mg/dl (70-220); POTASSIUM 3.1 mmol/L (3.5-5.1); SODIUM 143 mmol/L (135-144)
[2017-10-07] MEDS: POTASSIUM CHLORIDE (SR) 20 MEQ TAB PO (07:06)
[2017-10-07] MEDS: MESALAMINE (SR) 250 MG CAP PO ×4 (08:11→20:28)
[2017-10-07] MEDS: MULTIVITAMINS THERAPEUTIC TAB PO (08:12)
[2017-10-07] MEDS: BUDESONIDE (EC) 3 MG CAP PO (08:12)
[2017-10-07] MEDS: PREGABALIN 75 MG CAP PO ×2 (08:12→20:27)
[2017-10-07] MEDS: BUSPIRONE 10 MG TAB PO ×3 (08:13→20:28)
[2017-10-07] MEDS: CIPROFLOXACIN 400MG/D5W 200 ML IVPB ×2 (09:14→20:26)
[2017-10-07] MEDS ORDERED: POTASSIUM CHLORIDE (SR) 20 MEQ TAB PO (13:34)
[2017-10-07] MEDS: ENOXAPARIN 40 MG/0.4 ML SYG SC (14:00)
[2017-10-07] MEDS: NICOTINE (21 MG/24 HR) PATCH TRANSDERM (17:00)
[2017-10-07] MEDS: LIDOCAINE 5% PATCH TD (17:00)
[2017-10-07] MEDS: BACLOFEN 10 MG TAB PO (20:27)
[2017-10-07] MEDS: traZODone 100 MG TAB PO (20:28)
[2017-10-08] MEDS: ONDANSETRON 4 MG INJ IV ×5 (00:31→18:48)
[2017-10-08] MEDS: HYDROmorphONE 0.5 MG/0.5 ML SYG IV ×6 (02:27→23:37)
[2017-10-08] MEDS: DEXTROSE 5%-0.45% NACL 1,000 ML IV ×3 (03:04→23:40)
[2017-10-08 05:02] LABS: ADD MAN DIFF? NO
[2017-10-08 05:08] LABS: WHITE BLOOD COUNT 8.5 10^3/ul (4.8-10.8)
[2017-10-08 05:08] LABS: BASOPHIL # 0.1 10^3/ul (0.0-0.1); BASOPHILS % 0.7 % (0.0-2.0); EOSINOPHILS # 0.7 10^3/ul (0.0-0.5); EOSINOPHILS % 8.3 % (0.0-7.0); HEMATOCRIT 34.9 % (42.0-52.0); HEMOGLOBIN 11.5 g/dl (14.0-18.0); LYMPHOCYTES # 2.5 10^3/ul (0.8-2.9); MEAN CORPUSCULAR HEMOGLOBIN 31.9 pg (29.0-33.0); MEAN CORPUSCULAR VOLUME 96.7 fl (82.0-101.0); MEAN PLATELET VOLUME 9.7 fl (7.4-10.4); MONOCYTE # 0.7 10^3/ul (0.3-0.9); MONOCYTES % 8.5 % (0.0-11.0); NEUTROPHIL # 4.4 10^3/ul (1.6-7.5); NEUTROPHILS % 51.6 % (39.0-77.0); PLATELET COUNT 365 10^3/UL (140-415); RED BLOOD COUNT 3.61 10^6/ul (4.70-6.10); RED CELL DISTRIBUTION WIDTH 13.2 % (11.5-14.5)
[2017-10-08 05:25] LABS: ANION GAP 10 (8-16); BLOOD UREA NITROGEN 9 mg/dl (7-20); CALCIUM 9.3 mg/dl (8.4-10.2); CARBON DIOXIDE 27 mmol/L (21-31); CHLORIDE 107 mmol/L (97-110); GLUCOSE 113 mg/dl (70-220); POTASSIUM 3.6 mmol/L (3.5-5.1); SODIUM 140 mmol/L (135-144)
[2017-10-08] MEDS: LEVOTHYROXINE 75 MCG TAB PO (05:36)
[2017-10-08] MEDS: BUSPIRONE 10 MG TAB PO ×3 (09:30→20:11)
[2017-10-08] MEDS: BUDESONIDE (EC) 3 MG CAP PO (09:32)
[2017-10-08] MEDS: MESALAMINE (SR) 250 MG CAP PO ×4 (09:32→20:11)
[2017-10-08] MEDS: MULTIVITAMINS THERAPEUTIC TAB PO (09:32)
[2017-10-08] MEDS: PREGABALIN 75 MG CAP PO ×2 (09:32→20:10)
[2017-10-08] MEDS: LIDOCAINE 5% PATCH TD (09:36)
[2017-10-08] MEDS: NICOTINE (21 MG/24 HR) PATCH TRANSDERM (09:37)
[2017-10-08] MEDS: ENOXAPARIN 40 MG/0.4 ML SYG SC (09:38)
[2017-10-08] MEDS: CIPROFLOXACIN 400MG/D5W 200 ML IVPB ×2 (09:41→20:10)
[2017-10-08] MEDS: BACLOFEN 10 MG TAB PO (20:10)
[2017-10-08] MEDS: traZODone 100 MG TAB PO (20:11)
[2017-10-09] MEDS: ONDANSETRON 4 MG INJ IV ×2 (01:44→18:59)
[2017-10-09] MEDS: SOD CHLORIDE 0.9% 500 ML IV (04:18)
[2017-10-09] MEDS: HYDROmorphONE 0.5 MG/0.5 ML SYG IV ×4 (04:53→20:25)
[2017-10-09 05:31] LABS: ADD MAN DIFF? NO
[2017-10-09] MEDS: LEVOTHYROXINE 75 MCG TAB PO (05:34)
[2017-10-09 05:36] LABS: WHITE BLOOD COUNT 8.1 10^3/ul (4.8-10.8)
[2017-10-09 05:36] LABS: BASOPHIL # 0.1 10^3/ul (0.0-0.1); EOSINOPHILS # 0.6 10^3/ul (0.0-0.5); EOSINOPHILS % 7.8 % (0.0-7.0); HEMATOCRIT 36.1 % (42.0-52.0); HEMOGLOBIN 11.7 g/dl (14.0-18.0); LYMPHOCYTES # 2.7 10^3/ul (0.8-2.9); MEAN CORPUSCULAR HEMOGLOBIN 31.6 pg (29.0-33.0); MEAN CORPUSCULAR HGB CONC 32.4 g/dl (32.0-37.0); MEAN CORPUSCULAR VOLUME 97.6 fl (82.0-101.0); MEAN PLATELET VOLUME 9.5 fl (7.4-10.4); MONOCYTE # 0.7 10^3/ul (0.3-0.9); MONOCYTES % 8.9 % (0.0-11.0); NEUTROPHIL # 3.8 10^3/ul (1.6-7.5); NEUTROPHILS % 46.7 % (39.0-77.0); PLATELET COUNT 380 10^3/UL (140-415); RED CELL DISTRIBUTION WIDTH 13.6 % (11.5-14.5)
[2017-10-09 06:08] LABS: ANION GAP 11 (8-16); BLOOD UREA NITROGEN 13 mg/dl (7-20); CALCIUM 8.9 mg/dl (8.4-10.2); CARBON DIOXIDE 26 mmol/L (21-31); CHLORIDE 108 mmol/L (97-110); CREATININE 1.02 mg/dl (0.61-1.24); GLUCOSE 91 mg/dl (70-220); POTASSIUM 4.4 mmol/L (3.5-5.1); SODIUM 141 mmol/L (135-144)
[2017-10-09 08:11] LABS: ERYTHROCYTE SEDIMENTATION RATE 18 mm/Hr (0-15)
[2017-10-09] MEDS: MESALAMINE (SR) 250 MG CAP PO ×4 (08:58→20:30)
[2017-10-09] MEDS: MULTIVITAMINS THERAPEUTIC TAB PO (08:58)
[2017-10-09] MEDS: BUSPIRONE 10 MG TAB PO ×3 (08:58→20:27)
[2017-10-09] MEDS: BUDESONIDE (EC) 3 MG CAP PO (08:58)
[2017-10-09] MEDS: PREGABALIN 75 MG CAP PO ×2 (08:58→20:30)
[2017-10-09] MEDS: CIPROFLOXACIN 400MG/D5W 200 ML IVPB ×2 (08:59→20:24)
[2017-10-09] MEDS: ENOXAPARIN 40 MG/0.4 ML SYG SC (09:00)
[2017-10-09] MEDS: NICOTINE (21 MG/24 HR) PATCH TRANSDERM (09:00)
[2017-10-09] MEDS: LIDOCAINE 5% PATCH TD (09:00)
[2017-10-09] MEDS ORDERED: OXYCODONE/ACETAMINOPHEN (5/325) TAB PO (09:30)
[2017-10-09] MEDS: DEXTROSE 5%-0.45% NACL 1,000 ML IV (10:11)
[2017-10-09] MEDS: OXYCODONE/ACETAMINOPHEN (5/325) TAB PO ×3 (12:39→22:35)
[2017-10-09] MEDS: traZODone 100 MG TAB PO (20:29)
[2017-10-09] MEDS: BACLOFEN 10 MG TAB PO (20:30)
[2017-10-10] MEDS: ONDANSETRON 4 MG INJ IV ×2 (01:06→09:01)
[2017-10-10] MEDS: OXYCODONE/ACETAMINOPHEN (5/325) TAB PO ×5 (02:32→22:54)
[2017-10-10] MEDS: LEVOTHYROXINE 75 MCG TAB PO (05:50)
[2017-10-10 06:42] LABS: ADD MAN DIFF? NO
[2017-10-10 06:47] LABS: BASOPHIL # 0.1 10^3/ul (0.0-0.1); BASOPHILS % 1.1 % (0.0-2.0); EOSINOPHILS # 0.6 10^3/ul (0.0-0.5); EOSINOPHILS % 6.5 % (0.0-7.0); HEMATOCRIT 39.1 % (42.0-52.0); HEMOGLOBIN 12.6 g/dl (14.0-18.0); LYMPHOCYTES # 3.4 10^3/ul (0.8-2.9); LYMPHOCYTES % 35.7 % (15.0-51.0); MEAN CORPUSCULAR HEMOGLOBIN 31.3 pg (29.0-33.0); MEAN CORPUSCULAR HGB CONC 32.2 g/dl (32.0-37.0); MEAN PLATELET VOLUME 9.4 fl (7.4-10.4); MONOCYTE # 0.8 10^3/ul (0.3-0.9); MONOCYTES % 8.8 % (0.0-11.0); NEUTROPHIL # 4.3 10^3/ul (1.6-7.5); NEUTROPHILS % 45.8 % (39.0-77.0); PLATELET COUNT 410 10^3/UL (140-415); RED BLOOD COUNT 4.03 10^6/ul (4.70-6.10); RED CELL DISTRIBUTION WIDTH 13.8 % (11.5-14.5)
[2017-10-10 06:47] LABS: WHITE BLOOD COUNT 9.4 10^3/ul (4.8-10.8)
[2017-10-10 07:15] LABS: ANION GAP 13 (8-16); BLOOD UREA NITROGEN 14 mg/dl (7-20); CALCIUM 9.3 mg/dl (8.4-10.2); CARBON DIOXIDE 24 mmol/L (21-31); CHLORIDE 107 mmol/L (97-110); CREATININE 1.03 mg/dl (0.61-1.24); GLUCOSE 90 mg/dl (70-220); POTASSIUM 4.4 mmol/L (3.5-5.1); SODIUM 140 mmol/L (135-144)
[2017-10-10] MEDS: HYDROmorphONE 0.5 MG/0.5 ML SYG IV ×4 (08:01→21:01)
[2017-10-10] MEDS: MULTIVITAMINS THERAPEUTIC TAB PO (09:02)
[2017-10-10] MEDS: BUDESONIDE (EC) 3 MG CAP PO (09:02)
[2017-10-10] MEDS: PREGABALIN 75 MG CAP PO ×2 (09:02→21:01)
[2017-10-10] MEDS: CIPROFLOXACIN 400MG/D5W 200 ML IVPB (09:03)
[2017-10-10] MEDS: MESALAMINE (SR) 250 MG CAP PO ×4 (09:03→21:01)
[2017-10-10] MEDS: BUSPIRONE 10 MG TAB PO ×3 (09:04→21:02)
[2017-10-10] MEDS: ENOXAPARIN 40 MG/0.4 ML SYG SC (09:06)
[2017-10-10] MEDS: NICOTINE (21 MG/24 HR) PATCH TRANSDERM (16:30)
[2017-10-10] MEDS: LIDOCAINE 5% PATCH TD (16:30)
[2017-10-10] MEDS: BACLOFEN 10 MG TAB PO (21:02)
[2017-10-10] MEDS: traZODone 100 MG TAB PO (21:02)
[2017-10-11] MEDS: HYDROmorphONE 0.5 MG/0.5 ML SYG IV ×5 (00:49→20:41)
[2017-10-11] MEDS: ONDANSETRON 4 MG INJ IV ×4 (00:49→23:00)
[2017-10-11] MEDS: LEVOTHYROXINE 75 MCG TAB PO (05:37)
[2017-10-11] MEDS: ENOXAPARIN 40 MG/0.4 ML SYG SC (08:28)
[2017-10-11] MEDS: MULTIVITAMINS THERAPEUTIC TAB PO (08:32)
[2017-10-11] MEDS: PREGABALIN 75 MG CAP PO ×2 (08:33→20:42)
[2017-10-11] MEDS: MESALAMINE (SR) 250 MG CAP PO ×4 (08:33→20:41)
[2017-10-11] MEDS: BUSPIRONE 10 MG TAB PO ×3 (08:34→20:42)
[2017-10-11] MEDS: BUDESONIDE (EC) 3 MG CAP PO (08:34)
[2017-10-11] MEDS: OXYCODONE/ACETAMINOPHEN (5/325) TAB PO ×4 (08:34→23:00)
[2017-10-11] MEDS: LIDOCAINE 5% PATCH TD (08:37)
[2017-10-11] MEDS: NICOTINE (21 MG/24 HR) PATCH TRANSDERM (08:38)
[2017-10-11] MEDS: traZODone 100 MG TAB PO (20:42)
[2017-10-11] MEDS: BACLOFEN 10 MG TAB PO (20:42)
[2017-10-12] MEDS: HYDROmorphONE 0.5 MG/0.5 ML SYG IV ×5 (00:50→19:38)
[2017-10-12] MEDS: ONDANSETRON 4 MG INJ IV ×3 (05:36→18:46)
[2017-10-12] MEDS: LEVOTHYROXINE 75 MCG TAB PO (05:37)
[2017-10-12] MEDS: OXYCODONE/ACETAMINOPHEN (5/325) TAB PO ×4 (06:40→20:15)
[2017-10-12 07:51] LABS: ERYTHROCYTE SEDIMENTATION RATE 18 mm/Hr (0-15)
[2017-10-12] MEDS: MESALAMINE (SR) 250 MG CAP PO ×4 (08:42→21:03)
[2017-10-12] MEDS: PREGABALIN 75 MG CAP PO ×2 (08:43→21:02)
[2017-10-12] MEDS: MULTIVITAMINS THERAPEUTIC TAB PO (08:43)
[2017-10-12] MEDS: BUDESONIDE (EC) 3 MG CAP PO (08:43)
[2017-10-12] MEDS: NICOTINE (21 MG/24 HR) PATCH TRANSDERM (08:43)
[2017-10-12] MEDS: BUSPIRONE 10 MG TAB PO ×3 (08:43→21:03)
[2017-10-12] MEDS: LIDOCAINE 5% PATCH TD (08:44)
[2017-10-12] MEDS: ENOXAPARIN 40 MG/0.4 ML SYG SC (08:45)
[2017-10-12] MEDS: BACLOFEN 10 MG TAB PO (21:03)
[2017-10-12] MEDS: SACCHAROMYCES BOULARDII 250 MG CAP PO (21:03)
[2017-10-12] MEDS: traZODone 100 MG TAB PO (21:03)
[2017-10-13] MEDS: OXYCODONE/ACETAMINOPHEN (5/325) TAB PO ×3 (00:14→10:18)
[2017-10-13] MEDS: ONDANSETRON 4 MG INJ IV ×3 (00:58→14:16)
[2017-10-13] MEDS: HYDROmorphONE 0.5 MG/0.5 ML SYG IV ×2 (01:28→08:11)
[2017-10-13] MEDS: LEVOTHYROXINE 75 MCG TAB PO (06:11)
[2017-10-13] MEDS: NICOTINE (21 MG/24 HR) PATCH TRANSDERM (09:00)
[2017-10-13] MEDS: LIDOCAINE 5% PATCH TD (09:00)
[2017-10-13] MEDS: BUDESONIDE (EC) 3 MG CAP PO (09:25)
[2017-10-13] MEDS: BUSPIRONE 10 MG TAB PO ×3 (09:26→21:25)
[2017-10-13] MEDS: SACCHAROMYCES BOULARDII 250 MG CAP PO ×2 (09:27→21:26)
[2017-10-13] MEDS: PREGABALIN 75 MG CAP PO ×2 (09:27→21:31)
[2017-10-13] MEDS: MULTIVITAMINS THERAPEUTIC TAB PO (09:27)
[2017-10-13] MEDS: MESALAMINE (SR) 250 MG CAP PO ×4 (09:27→21:27)
[2017-10-13] MEDS: ENOXAPARIN 40 MG/0.4 ML SYG SC (09:28)
[2017-10-13] MEDS ORDERED: OXYCODONE/ACETAMINOPHEN (10/325) TAB PO (11:00)
[2017-10-13] MEDS: ACETAMINOPHEN 1000MG/100ML IV 100 ML IVPB ×3 (12:00→18:15)
[2017-10-13] MEDS: CARISOPRODOL 350 MG TAB PO ×2 (15:34→21:30)
[2017-10-13] MEDS: traMADol 50 MG TAB PO ×2 (18:15→21:28)
[2017-10-13] MEDS: BACLOFEN 10 MG TAB PO (21:26)
[2017-10-13] MEDS: traZODone 100 MG TAB PO (21:27)
[2017-10-14] MEDS: ACETAMINOPHEN 1000MG/100ML IV 100 ML IVPB ×4 (00:31→17:30)
[2017-10-14] MEDS: LEVOTHYROXINE 75 MCG TAB PO (06:26)
[2017-10-14] MEDS: BUDESONIDE (EC) 3 MG CAP PO (09:30)
[2017-10-14] MEDS: PREGABALIN 75 MG CAP PO ×2 (09:31→21:01)
[2017-10-14] MEDS: MESALAMINE (SR) 250 MG CAP PO ×4 (09:31→21:01)
[2017-10-14] MEDS: SACCHAROMYCES BOULARDII 250 MG CAP PO ×2 (09:31→21:01)
[2017-10-14] MEDS: LIDOCAINE 5% PATCH TD (09:32)
[2017-10-14] MEDS: NICOTINE (21 MG/24 HR) PATCH TRANSDERM (09:32)
[2017-10-14] MEDS: BUSPIRONE 10 MG TAB PO ×3 (09:32→18:25)
[2017-10-14] MEDS: ENOXAPARIN 40 MG/0.4 ML SYG SC (09:34)
[2017-10-14] MEDS: MULTIVITAMINS THERAPEUTIC TAB PO (09:34)
[2017-10-14] MEDS: CARISOPRODOL 350 MG TAB PO ×2 (09:37→21:03)
[2017-10-14] MEDS: ONDANSETRON 4 MG INJ IV ×2 (12:33→21:08)
[2017-10-14] MEDS: traZODone 100 MG TAB PO (21:01)
[2017-10-14] MEDS: BACLOFEN 10 MG TAB PO (21:01)
[2017-10-15] MEDS: ACETAMINOPHEN 1000MG/100ML IV 100 ML IVPB ×4 (00:07→16:03)
[2017-10-15] MEDS: ZOLPIDEM 5 MG TAB PO (00:12)
[2017-10-15] MEDS: LEVOTHYROXINE 75 MCG TAB PO (05:28)
[2017-10-15] MEDS: ONDANSETRON 4 MG INJ IV (05:36)
[2017-10-15] MEDS: traMADol 50 MG TAB PO ×3 (06:24→18:00)
[2017-10-15] MEDS: PREGABALIN 75 MG CAP PO ×2 (10:32→21:22)
[2017-10-15] MEDS: MULTIVITAMINS THERAPEUTIC TAB PO (10:32)
[2017-10-15] MEDS: BUSPIRONE 10 MG TAB PO ×3 (10:32→21:21)
[2017-10-15] MEDS: BUDESONIDE (EC) 3 MG CAP PO (10:32)
[2017-10-15] MEDS: SACCHAROMYCES BOULARDII 250 MG CAP PO ×2 (10:33→21:20)
[2017-10-15] MEDS: NICOTINE (21 MG/24 HR) PATCH TRANSDERM ×2 (10:33→21:23)
[2017-10-15] MEDS: MESALAMINE (SR) 250 MG CAP PO ×4 (10:33→21:22)
[2017-10-15] MEDS: CARISOPRODOL 350 MG TAB PO ×2 (10:33→21:34)
[2017-10-15] MEDS: LIDOCAINE 5% PATCH TD ×2 (10:34→21:24)
[2017-10-15] MEDS: ENOXAPARIN 40 MG/0.4 ML SYG SC (10:38)
[2017-10-15] MEDS: ONDANSETRON (ODT) 4 MG TAB ODT (17:24)
[2017-10-15] MEDS: traZODone 100 MG TAB PO (21:20)
[2017-10-15] MEDS: BACLOFEN 10 MG TAB PO (21:20)
[2017-10-16] MEDS: ONDANSETRON (ODT) 4 MG TAB ODT ×3 (00:18→20:13)
[2017-10-16] MEDS: traMADol 50 MG TAB PO ×3 (00:18→12:07)
[2017-10-16] MEDS: ZOLPIDEM 5 MG TAB PO (01:03)
[2017-10-16] MEDS: ACETAMINOPHEN 1000MG/100ML IV 100 ML IVPB ×4 (06:00→16:48)
[2017-10-16] MEDS: LEVOTHYROXINE 75 MCG TAB PO (06:18)
[2017-10-16] MEDS: BUSPIRONE 10 MG TAB PO ×3 (08:28→20:10)
[2017-10-16] MEDS: MESALAMINE (SR) 250 MG CAP PO ×4 (08:28→20:10)
[2017-10-16] MEDS: SACCHAROMYCES BOULARDII 250 MG CAP PO ×2 (08:28→20:11)
[2017-10-16] MEDS: MULTIVITAMINS THERAPEUTIC TAB PO (08:29)
[2017-10-16] MEDS: PREGABALIN 75 MG CAP PO ×2 (08:29→20:13)
[2017-10-16] MEDS: CARISOPRODOL 350 MG TAB PO ×2 (08:29→20:15)
[2017-10-16] MEDS: BUDESONIDE (EC) 3 MG CAP PO (08:30)
[2017-10-16] MEDS: ENOXAPARIN 40 MG/0.4 ML SYG SC (09:00)
[2017-10-16] MEDS: LIDOCAINE 5% PATCH TD (09:00)
[2017-10-16] MEDS: HYDROCODONE/APAP (10/325) TAB PO ×2 (12:46→18:32)
[2017-10-16] MEDS: NICOTINE (21 MG/24 HR) PATCH TRANSDERM (13:56)
[2017-10-16] MEDS: BACLOFEN 10 MG TAB PO (20:11)
[2017-10-16] MEDS: traZODone 100 MG TAB PO (20:12)
[2017-10-17] MEDS: HYDROCODONE/APAP (10/325) TAB PO ×3 (00:28→13:04)
[2017-10-17] MEDS: ZOLPIDEM 5 MG TAB PO (01:09)
[2017-10-17 05:25] LABS: ADD MAN DIFF? NO
[2017-10-17 05:29] LABS: BASOPHIL # 0.1 10^3/ul (0.0-0.1); BASOPHILS % 1.4 % (0.0-2.0); EOSINOPHILS # 0.2 10^3/ul (0.0-0.5); EOSINOPHILS % 2.8 % (0.0-7.0); HEMATOCRIT 40.6 % (42.0-52.0); HEMOGLOBIN 13.2 g/dl (14.0-18.0); IMMATURE GRANS #M 0.04 10^3/ul; IMMATURE GRANS % (M) 0.5 %; LYMPHOCYTES # 4.3 10^3/ul (0.8-2.9); LYMPHOCYTES % 49.3 % (15.0-51.0); MEAN CORPUSCULAR HEMOGLOBIN 31.5 pg (29.0-33.0); MEAN CORPUSCULAR HGB CONC 32.5 g/dl (32.0-37.0); MEAN CORPUSCULAR VOLUME 96.9 fl (82.0-101.0); MEAN PLATELET VOLUME 9.3 fl (7.4-10.4); MONOCYTE # 0.8 10^3/ul (0.3-0.9); MONOCYTES % 9.1 % (0.0-11.0); NEUTROPHIL # 3.2 10^3/ul (1.6-7.5); NEUTROPHILS % 36.9 % (39.0-77.0); PLATELET COUNT 374 10^3/UL (140-415); RED BLOOD COUNT 4.19 10^6/ul (4.70-6.10); RED CELL DISTRIBUTION WIDTH 13.2 % (11.5-14.5)
[2017-10-17 05:29] LABS: WHITE BLOOD COUNT 8.7 10^3/ul (4.8-10.8)
[2017-10-17 05:54] LABS: PHOSPHORUS 4.3 mg/dl (2.5-4.9)
[2017-10-17 05:54] LABS: MAGNESIUM 1.9 mg/dl (1.7-2.5)
[2017-10-17 05:58] LABS: ANION GAP 17 (8-16); BLOOD UREA NITROGEN 18 mg/dl (7-20); CALCIUM 9.7 mg/dl (8.4-10.2); CARBON DIOXIDE 23 mmol/L (21-31); CHLORIDE 105 mmol/L (97-110); CREATININE 0.88 mg/dl (0.61-1.24); GLUCOSE 91 mg/dl (70-220); POTASSIUM 3.9 mmol/L (3.5-5.1); SODIUM 141 mmol/L (135-144)
[2017-10-17] MEDS: ACETAMINOPHEN 1000MG/100ML IV 100 ML IVPB ×3 (06:00→11:39)
[2017-10-17] MEDS: LEVOTHYROXINE 75 MCG TAB PO (06:26)
[2017-10-17] MEDS: ONDANSETRON (ODT) 4 MG TAB ODT (08:44)
[2017-10-17] MEDS: ENOXAPARIN 40 MG/0.4 ML SYG SC (09:00)
[2017-10-17] MEDS: SACCHAROMYCES BOULARDII 250 MG CAP PO (09:30)
[2017-10-17] MEDS: BUDESONIDE (EC) 3 MG CAP PO (09:30)
[2017-10-17] MEDS: BUSPIRONE 10 MG TAB PO ×2 (09:30→13:03)
[2017-10-17] MEDS: PREGABALIN 75 MG CAP PO (09:30)
[2017-10-17] MEDS: MESALAMINE (SR) 250 MG CAP PO ×2 (09:31→13:04)
[2017-10-17] MEDS: NICOTINE (21 MG/24 HR) PATCH TRANSDERM (09:31)
[2017-10-17] MEDS: LIDOCAINE 5% PATCH TD (09:31)
[2017-10-17] MEDS: MULTIVITAMINS THERAPEUTIC TAB PO (09:31)
[2017-10-17] MEDS: CARISOPRODOL 350 MG TAB PO (09:32)
== END 2017-10-17 16:00 | disposition home or self-care (01) | DRG 386 ==
LOC: PP2 21:20
PROC: 0DBF8ZX Excision of Right Large Intestine, Via Natural or Artificial Opening Endoscopic, Diagnostic (ICD-10-PCS; principal; 2017-10-04 15:30)
DX: K50.112 Crohn's disease of large intestine with intestinal obstruction (principal); K63.3 Ulcer of intestine; E03.9 Hypothyroidism, unspecified; F31.9 Bipolar disorder, unspecified; D64.9 Anemia, unspecified; E87.6 Hypokalemia; G89.29 Other chronic pain; M54.9 Dorsalgia, unspecified; F17.200 Nicotine dependence, unspecified, uncomplicated
CPT/HCPCS: 74018; 74177; 74178; 74250; 80048; 80053; 80076; 80307; 83605; 83735; 84100; 84134; 84439; 84443; 84478; 85025; 85651; 87177; 87205; 88305